=== PATIENT | male | born 1935 | race Caucasian/White ===

== ENCOUNTER → 2018-03-08 | Outpatient (CLI) | payer MEDICARE, BC, OTHER ==
[~2018-03-08] MED LIST: DORZ10DR7 EACHEYE; FORM20VI INH; LATA2.5D3 EACHEYE; TIOT18CA INH
== END | disposition home or self-care (01) ==
LOC: CFH 10:51
PROVIDERS: ATTEND Internal Medicine
DX: J44.9 Chronic obstructive pulmonary disease, unspecified (principal)
CPT/HCPCS: 71250

== ENCOUNTER → 2018-07-04 | Outpatient (CLI) | payer MEDICARE, BC, OTHER | END | disposition home or self-care (01) | LOC: CFH 09:22 | PROVIDERS: ATTEND Internal Medicine Cardiovascular Disease | DX: I35.8 Other nonrheumatic aortic valve disorders (principal); Z95.0 Presence of cardiac pacemaker; Z87.891 Personal history of nicotine dependence | CPT/HCPCS: 93306 ==

== ENCOUNTER → 2018-09-16 | Outpatient (CLI) | payer MEDICARE, BC, OTHER | END | disposition home or self-care (01) | LOC: CFH 10:06 | PROVIDERS: ATTEND Internal Medicine | DX: J43.2 Centrilobular emphysema (principal); R91.1 Solitary pulmonary nodule | CPT/HCPCS: 71250 ==

== ENCOUNTER 2019-02-13 10:09 | Outpatient (CLI) | payer MEDICARE, BC, OTHER ==
[2019-02-13] MEDS ORDERED: TIOT4MIS3 INH (10:46)
[2019-02-13] MEDS ORDERED: PROP10DR2 EACHEYE (10:46)
[2019-02-13 11:17] LABS: BASOPHILS # (AUTO) 0.04 x10^3/uL (0-0.1); BASOPHILS % (AUTO) 1 % (0-1); EOSINOPHILS # (AUTO) 0.28 x10^3/uL (0-0.4); EOSINOPHILS % (AUTO) 4 % (1-7); LYMPHOCYTES # (AUTO) 1.77 x10^3/uL (1-3.4); LYMPHOCYTES % (AUTO) 22 % (22-44); MD NO; MEAN CORPUSCULAR HEMOGLOBIN 32.7 pg (27.5-34.5); MEAN CORPUSCULAR HGB CONC 33.2 g/dL (33.2-36.2); MEAN CORPUSCULAR VOLUME 98.5 fL (81-97); MEAN PLATELET VOLUME 9.1 fL (7.4-10.4); MONOCYTES # (AUTO) 0.59 x10^3/uL (0.2-0.8); MONOCYTES % (AUTO) 8 % (2-9); NEUTROPHILS # (AUTO) 5.21 x10^3/uL (1.8-6.8); NEUTROPHILS % (AUTO) 66 % (42-75); PLATELET COUNT 230 x10^3/uL (130-400); RED BLOOD COUNT 5.03 x10^6/uL (4.38-5.82); RED CELL DISTRIBUTION WIDTH 14.3 % (9.4-14.8)
[2019-02-13 11:23] LABS: ANION GAP 4 mmol/L (5-15); CALCIUM 9.7 mg/dL (8.5-10.1); CHLORIDE 107 mmol/L (98-107); CREATININE 1.16 mg/dL (0.7-1.3); INTERNATIONAL NORMALIZED RATIO 0.99 (0.93-1.1); PROTHROMBIN TIME 10.4 Seconds (9.6-11.5)
== END 2019-02-13 23:59 | disposition home or self-care (01) ==
LOC: STAR 10:09
PROVIDERS: ATTEND Internal Medicine Cardiovascular Disease
DX: Z95.0 Presence of cardiac pacemaker (principal)
CPT/HCPCS: 36415; 71046; 80048; 85025; 85610

== ENCOUNTER 2019-02-18 09:05 | Day surgery (SDC) | payer MEDICARE, BC, OTHER ==
[2019-02-13 10:41] VITALS: BP 162/91
[~2019-02-18] VITALS: Ht 172.7 cm; Wt 62.2 kg
[~2019-02-18 09:05] MED LIST changes: +PROP10DR2 EACHEYE; +TIOT4MIS3 INH
[2019-02-18] MEDS ORDERED: SODIUM CHLORIDE 0.9% 1,000 ML IV SCH (09:17)
[2019-02-18] MEDS ORDERED: CEFAZOLIN PMX 1GM/50ML 50 ML IVPB ONE (09:30)
[2019-02-18] MEDS ORDERED: CEFAZOLIN 1,000 MG ONE (10:42)
[2019-02-18] MEDS ORDERED: CEFAZOLIN PMX 1GM/50ML 50 ML ONE (10:42)
[2019-02-18] MEDS ORDERED: LIDOCAINE 1%, 20ML ONE (10:42)
[2019-02-18] MEDS ORDERED: MIDAZOLAM 1 MG/ML, 2ML ONE (10:42)
[2019-02-18] MEDS ORDERED: FENTANYL PF 100 MCG/2ML ONE (10:42)
[2019-02-18] MEDS ORDERED: ACETAMINOPHEN 325 MG TABLET PO PRN (11:30)
[2019-02-18] MEDS ORDERED: HOLD MEDICATION MC PRN (11:30)
[2019-02-18] MEDS ORDERED: PROPYLENE GLYCOL EACHEYE PRN (12:00)
[2019-02-18] MEDS ORDERED: POLYETHYLENE GLYCOL 400 EACHEYE PRN (12:00)
[2019-02-18] MEDS ORDERED: TEMPLATE NON-FORMULARY MED. (Dorzolamide Hcl/Timolol Maleat (Dorzolamide-Timolol Eye Drops EACHEYE SCH (21:00)
[2019-02-18] MEDS ORDERED: LATANOPROST OPHTH 0.005%, 2.5ML EACHEYE SCH (21:00)
[2019-02-18] MEDS ORDERED: SODIUM CHLORIDE FLUSH 10ML SYR IVF SCH (21:00)
[2019-02-19] MEDS ORDERED: TEMPLATE NON-FORMULARY MED. (Tiotropium Br/Olodaterol HCl (Stiolto Respimat Inhal Spray) 2 INH SCH (09:00)
== END 2019-02-18 13:10 | disposition home or self-care (01) ==
LOC: CACL 09:05
PROVIDERS: ATTEND Internal Medicine Cardiovascular Disease
DX: Z45.018 Encounter for adjustment and management of other part of cardiac pacemaker (principal); I10 Essential (primary) hypertension; F17.200 Nicotine dependence, unspecified, uncomplicated; J44.9 Chronic obstructive pulmonary disease, unspecified
CPT/HCPCS: 33228; 99156; C1785; J0690; J2250; J3010; J3490

== ENCOUNTER → 2019-09-30 | Outpatient (CLI) | payer MEDICARE, BC, OTHER | END | disposition home or self-care (01) | LOC: CFH 09:54 | PROVIDERS: ATTEND Internal Medicine | DX: J43.8 Other emphysema (principal); I70.0 Atherosclerosis of aorta; M47.894 Other spondylosis, thoracic region; J98.4 Other disorders of lung; R91.1 Solitary pulmonary nodule; J44.9 Chronic obstructive pulmonary disease, unspecified; F17.200 Nicotine dependence, unspecified, uncomplicated | CPT/HCPCS: 71250 ==

== ENCOUNTER 2019-10-30 10:48 | Outpatient (CLI) | payer MEDICARE, BC, OTHER | END 2019-10-30 23:59 | disposition home or self-care (01) | LOC: STAR 10:48 | PROVIDERS: ATTEND Internal Medicine | DX: Z01.818 Encounter for other preprocedural examination (principal); R13.10 Dysphagia, unspecified; Z83.71 Family history of colonic polyps | CPT/HCPCS: 93005 ==

== ENCOUNTER 2019-11-11 08:33 | Day surgery (SDC) | payer MEDICARE, BC, OTHER ==
[~2019-11-11] VITALS: Ht 172.7 cm; Wt 60.5 kg
[2019-11-11] MEDS ORDERED: LACTATED RINGERS 1,000 ML IV SCH (09:13)
[2019-11-11 09:14] VITALS: BP 144/85
[2019-11-11] MEDS ORDERED: PROPOFOL 50 ML ONE (11:15)
[2019-11-11] MEDS ORDERED: ESMOLOL 100 MG/10 ML ONE (11:55)
[2019-11-11] MEDS ORDERED: EPHEDRINE 50 MG/ML, 1ML ONE (11:55)
== END 2019-11-11 13:50 | disposition home or self-care (01) ==
LOC: OUT 08:33
PROVIDERS: ATTEND Internal Medicine
DX: R13.19 Other dysphagia (principal); D12.3 Benign neoplasm of transverse colon; K57.30 Diverticulosis of large intestine without perforation or abscess without bleeding; K22.70 Barrett's esophagus without dysplasia; J44.9 Chronic obstructive pulmonary disease, unspecified; Z86.010 Personal history of colon polyps; Z95.0 Presence of cardiac pacemaker; Z80.0 Family history of malignant neoplasm of digestive organs
CPT/HCPCS: 43239; 43248; 45385; 88305; J2704; J7120

== ENCOUNTER → 2019-12-15 | Outpatient (CLI) | payer MEDICARE, BC, OTHER | END | disposition home or self-care (01) | LOC: CFH 08:06 | PROVIDERS: ATTEND Nurse Practitioner Family | DX: I08.8 Other rheumatic multiple valve diseases (principal); I71.9 Aortic aneurysm of unspecified site, without rupture; I10 Essential (primary) hypertension; J44.9 Chronic obstructive pulmonary disease, unspecified | CPT/HCPCS: 93306; 93978 ==

== ENCOUNTER 2020-01-05 09:59 | Emergency (ER) | payer MEDICARE, BC, OTHER ==
--- NOTE | 2020-01-05 10:53 | NUR ---
pt presents to ED with c/o cough, sob and generalized weakness x 2 days. pt is a&ox4, resps even and unlabored, denies pain. all monitors in place, pt is paced rate 60s on registered nurse cardiac telemetry, no ectopy noted. EKG taken in triage. pt instructed to provide clean catch urine sample when able, pt denying urge at this time. urinal at bedside. call light in reach.
[2020-01-05 10:55] LABS: BASOPHILS # (AUTO) 0.02 x10^3/uL (0-0.1); BASOPHILS % (AUTO) 0 % (0-1); EOSINOPHILS # (AUTO) 0.09 x10^3/uL (0-0.4); EOSINOPHILS % (AUTO) 1 % (1-7); LYMPHOCYTES % (AUTO) 12 % (22-44); MD NO; MEAN CORPUSCULAR HEMOGLOBIN 33.7 pg (27.5-34.5); MEAN CORPUSCULAR HGB CONC 34.2 g/dL (33.2-36.2); MEAN CORPUSCULAR VOLUME 98.5 fL (81-97); MEAN PLATELET VOLUME 9.3 fL (7.4-10.4); MONOCYTES # (AUTO) 0.65 x10^3/uL (0.2-0.8); MONOCYTES % (AUTO) 9 % (2-9); NEUTROPHILS # (AUTO) 6.03 x10^3/uL (1.8-6.8); NEUTROPHILS % (AUTO) 78 % (42-75); PLATELET COUNT 217 x10^3/uL (130-400); RED BLOOD COUNT 4.56 x10^6/uL (4.38-5.82); RED CELL DISTRIBUTION WIDTH 14.1 % (9.4-14.8)
[2020-01-05 10:59] LABS: RAPID INFLUENZA A Negative (Negative); RAPID INFLUENZA B Negative (Negative)
[2020-01-05] MEDS ORDERED: ALBUTEROL/IPRATROPIUM 2.5MG/0.5MG, 3 ML NPPB SCH (11:00)
--- NOTE | 2020-01-05 11:01 | NUR ---
report given to renzo Kelly
--- NOTE | 2020-01-05 11:02 | NUR ---
BREAK RN: PT UPRIGHT ON GURNEY AWAKE & COMFORTABLE, RESPONDS APPROP TO STAFF, NO RESP DISTRESS ON RA, NO NEEDS AT THIS TIME, FAMILY AT BS, CALL LIGHT WITHIN REACH, AWAITING UA SAMPLE.
[2020-01-05 11:04] LABS: ALBUMIN 3.1 g/dL (3.4-5.0); ANION GAP 6 mmol/L (5-15); CALCIUM 9.4 mg/dL (8.5-10.1); CHLORIDE 104 mmol/L (98-107); CREATININE 1.28 mg/dL (0.7-1.3)
[2020-01-05] MEDS ORDERED: ALBUTEROL/IPRATROPIUM 2.5MG/0.5MG, 3 ML ONE (11:10)
--- NOTE | 2020-01-05 11:35 | NUR ---
BREAK RN: SEEN BY RT
--- NOTE | 2020-01-05 11:40 | NUR ---
report received from MD Damian Dhaliwal at bedside to update pt with results and POC.
[2020-01-05 12:11] VITALS: BP 125/53
== END 2020-01-05 12:14 | disposition home or self-care (01) ==
LOC: ED 12:00
DX: J44.1 Chronic obstructive pulmonary disease with (acute) exacerbation (principal)
CPT/HCPCS: 36415; 71045; 80048; 82040; 83605; 85025; 87400; 93005; 94640; 99285; J7620

== ENCOUNTER → 2020-11-03 | Outpatient (CLI) | payer MEDICARE, BC, OTHER ==
[~2020-11-03] MED LIST changes: +CEFD300C37 PO; +DOCU100C33 PO; -LATA2.5D3 EACHEYE; +LATA2.5D4 EACHEYE; +METR-90 PO; +OMEP40CA42 PO; +OXYC5TAB3 PO; +PROP10DR14 OP
== END | disposition home or self-care (01) ==
LOC: CFH 10:54
PROVIDERS: ATTEND Internal Medicine
DX: J43.9 Emphysema, unspecified (principal); J84.10 Pulmonary fibrosis, unspecified; R91.8 Other nonspecific abnormal finding of lung field; R59.0 Localized enlarged lymph nodes; J98.4 Other disorders of lung
CPT/HCPCS: 71250